=== PATIENT | female | born 1970 | race Caucasian/White ===

== ENCOUNTER 2023-12-03 12:07 | Emergency (ER) | payer OTHER, SELFPAY ==
[2023-12-03 12:14] VITALS: BP 134/93
--- NOTE | 2023-12-03 12:29 | ED.GENMED ---
History of Present Illness
General
Chief Complaint: Cardiac Symptoms
Source: patient
Exam Limitations: none
Time Seen by Provider: 12/03/23 12:29
Travel History
Have you had any contact with someone who has COVID-19?: No
Do you have any symptoms of coronavirus? Fever > 100 degrees, chills, cough, shortness of breath, sore throat, loss of taste or smell, muscle aches, or headache?: Yes
Symptoms:: congestion
History of Present Illness
History of Present Illness:
Patient sent by [facility] for ongoing chest pain and upper back pain. Somewhat pleuritic in nature. Has been there for about 5 days continuously although does wax and wane. No shortness of breath no fever no cough. Patient felt
like she had sinus symptoms prior to this although the symptoms resolved.
Past History
Past History
ED Past Medical History: None
ED Past Surgical History: Tonsilectomy (Eye surgery) and Other (eye surgeries)
Social History
Tobacco: Non-smoker
Alcohol: Occasional
Drug: None
Personal:
Living: with family
Employment: Employed
Review of Systems
Review of Systems
All Other Systems: Not applicable
Constitutional: Denies fever
Respiratory: Denies trouble breathing
Cardiac: Denies chest pain or syncope
ABD/GI: Reports no symptoms
Phy Exam
Physical Exam
Physical Exam:
GENERAL: Alert and oriented in no apparent distress
EYE: Orbits normal.
NECK: Supple, no thyroid palpable
ENT: Pharynx without erythema
CARDIAC: Regular rate and rhythm without any obvious murmurs.
LUNGS: Clear breath sounds,normal
ABDOMEN: Soft, without focal tenderness or distention
NEUROLOGICAL: Alert and oriented , grossly non-focal
SKIN: Warm and dry, no rash or lesion, no discoloration, skin intact.
MUSCULOSKELETAL: No edema,no deformity.Good color
PSYCH: Normal and appropriate interaction.
Course
Orders/Labs/Results
Orders:
Orders
12/03/23 12:16
EKG [Electrocardiogram (*1)] Urgent
Reason for Study: Chest Pain
EKG- Treatment ONCE
12/03/23 12:43
CT Chest Pe Study Urgent
Comment:
Reason For Exam: Ongoing pleuritic pain to the back
IV Insert/Care/Rem.- Treatment PRN
0.9% Sodium Chloride 500 ml [Nss] 500 ml IV BOLUS
12/03/23 12:54
Troponin I Urgent
Vital Signs
Initial and Last Documented VS:
Initial Vital Signs
Temp Pulse Resp BP Pulse Ox
98.9 F 62 17 134/93 100
12/03/23 12:14 12/03/23 12:14 12/03/23 12:14 12/03/23 12:14 12/03/23 12:14
Last Documented Vital Signs
Temp Pulse Resp BP Pulse Ox
98.9 F 54 12 118/76 100
12/03/23 12:14 12/03/23 14:30 12/03/23 13:45 12/03/23 14:00 12/03/23 14:30
MDM/Problems Addressed
Differential Diagnosis Includes:
Continual chest pain to the upper back mildly pleuritic. Labs at urgent care all were normal including CBC BMP COVID flu. CT scan because of the referral to the back for completeness. Troponin and EKG which do not need to be repeated given the
prolonged symptoms.
*Radiology
Radiology exam reviewed: radiology read reviewed (CT angiography negative)
*Pulse Oximetry
Patient hypoxic: no
*EKG
Interpreted by ED Provider?: Yes
Interpretation: abnormal
Comparison EKG: changes noted
Heart Rate: 53
Rate: bradycardiac
Rhythm: sinus
[place]: left axis deviation
Interval: normal interval
QRS Pattern: normal QRS
Ischemia: non-specific ST changes
*Critical Care Note
Total Time (30-74mins, 75-104mins- exclusive of procedures): Not Applicable
Update Note
Update Note:
Patient has remained stable and nontoxic. Prolonged symptoms of chest pain to the back for 4 to 5 days. Continuous but does wax and wane. Abnormal EKG but unchanged. Negative troponin which I would highly highly expect to be positive after 4
days of continual symptoms. Suspect prolonged viral syndrome. Discussed antibiotics with the patient which she would prefer to give a trial given her prolonged symptoms.
ED Attending Note
-
Portions of this chart may have been created with voice recognition software.� Occasional wrong word or��sound alike� substitutions may have occurred due to the inherent limitations of voice recognition software.
Discharge Plan
Departure
Patient Disposition: Home (Routine Discharge)
Date of Disposition: 12/03/23
Time of Disposition: 14:28
Patient with high blood pressure during this ER visit?: Yes
Discharge Problem:
Chest pain, Radiation to back, Possible sinusitis
Instructions: Chest Pain (DC), BLOOD PRESSURE
Prescriptions:
New
doxycycline hyclate 100 mg capsule
100 mg PO BID 10 Days Qty: 20 0RF
No Action
cephalexin 250 MG capsule
250 mg PO QID
acetaminophen-codeine 1 TABLET tablet
1 tab PO Q4HPRN PRN (Reason: pain from dog bite)
sulfamethoxazole-trimethoprim [Bactrim DS] 1 EACH tablet
1 ea PO Q12H
Rocephin:
1 g IM .TODAY X 1 DOSE
clindamycin HCl 300 MG capsule
300 mg PO Q6 7 Days 0RF
Referrals:
Barbara Conte DO [Family Provider] - Follow up in 2-3 days
Activity Restrictions/Additional Instructions:
Follow-up closely with your primary physician
Return with recurrent chest pain progressive chest pain shortness of breath fever or if symptoms or not improving in 2 to 3 days
Interventions
Interventions:
*Risk Screen - Suicide Last Done: 12/03/23 12:14
*General Assessment Last Done: 12/03/23 12:14
*Neglect/Abuse Screening Last Done: 12/03/23 12:14
ED- Fall Risk Assessment Last Done: 12/03/23 14:38
*ED COVID-19 Vaccine History Last Done: 12/03/23 12:14
*Nursing Disposition Last Done: 12/03/23 14:38
ED- Pulmonary Assessment Last Done: 12/03/23 12:55
ED- Cardiac Assessment Last Done: 12/03/23 12:55
Discharge Date and Time
Discharge Date/Time: 12/03/23 14:42
[2023-12-03 12:54] VITALS: BP 143/82
[2023-12-03] MEDS: NSS 500 IV (12:56)
[2023-12-03 13:00] VITALS: BP 126/72
[2023-12-03 13:30] LABS: Troponin I < 0.012 ng/ml
[2023-12-03 14:00] VITALS: BP 118/76
== END 2023-12-03 14:42 | disposition home or self-care (01) ==
LOC: EMR 12:07
PROVIDERS: EMERGENCY PHYSICIAN Emergency Medicine; FAMILY PHYSICIAN Family Medicine
DX: R07.89 Other chest pain (principal); M54.6 Pain in thoracic spine; R07.81 Pleurodynia; R03.0 Elevated blood-pressure reading, without diagnosis of hypertension; R94.31 Abnormal electrocardiogram [ECG] [EKG]; Z91.030 Bee allergy status
CPT/HCPCS: 99285; 96360; 71275; 84484; 93005; Q9967

== ENCOUNTER → 2024-01-23 11:38 | Outpatient (REF) | payer OTHER, SELFPAY | LOC: WDC 11:38 | PROVIDERS: ATTENDING PHYSICIAN Obstetrics & Gynecology | DX: Z12.31 Encounter for screening mammogram for malignant neoplasm of breast (principal) | CPT/HCPCS: 77063; 77067 ==

== ENCOUNTER → 2025-01-28 08:04 | Outpatient (REF) | payer OTHER, SELFPAY | LOC: WDC 08:04 | PROVIDERS: ATTENDING PHYSICIAN Obstetrics & Gynecology; FAMILY PHYSICIAN Family Medicine | DX: Z12.31 Encounter for screening mammogram for malignant neoplasm of breast (principal) | CPT/HCPCS: 77063; 77067 ==